=== PATIENT | female | born 1985 | race Caucasian/White ===

== ENCOUNTER 2017-11-13 20:36 | Observation (INO) | payer MEDICAID ==
[~2017-11-13] VITALS: Ht 160 cm; Wt 52.0 kg
[2017-11-13 20:43] VITALS: BP 130/77; PULSE 95; RESP 14; TEMP 98.4; O2SAT 100
--- NOTE | 2017-11-13 21:33 | PD ---
HPI Chief Complaint: Musculoskeletal Complaint Time Seen by Provider: 20:54 Travel History International Travel<30 days: No Contact w/Intl Traveler<30days: No Traveled to known affect area: No History of Present Illness HPI Is a 32-year-old woman who presents to the emergency department complaining of numbness and weakness in both her legs. She has a history of myotonic dystrophy. Multiple family members have the same. She is not on any medications right now for it. She is followed by in [place]. She normally has some generalized weakness and pain, especially her back and muscles , but can walk unassisted. This afternoon around [birth year]14[birth year]1929 she went to get up off the couch and just collapsed. She states she has had worsening weakness and as well as generalized numbness and burning pain in both her legs below about the mid thigh in a stocking sort of distribution. Denies any numbness tingling more proximal. She got some tingling in her hands after doing a hand squeeze but otherwise denies upper extremity symptoms prior to that. History Past Medical History Narrative Medical Myotonic dystrophy Anxiety Asthma Tetanus Vaccination: < 5 Years Influenza Vaccination: Yes LMP: Jul 2017 Social History Alcohol Use: Yes (rarely) Tobacco Use: No (quit 10 years ago) Allergies-Medications (Allergen,Severity, Reaction): Coded Allergies: Penicillins (Verified Allergy, Unknown, 11/13/17) ciprofloxacin (Verified Allergy, Unknown, 11/13/17) Reported Meds & Prescriptions Reported Meds & Active Scripts Active No Active Prescriptions or Reported Medications Review of Systems Except as stated in HPI: all other systems reviewed are Neg Physical Exam Narrative GENERAL: 32-year-old woman, well-appearing, decreased muscle bulk, nontoxic, no acute distress. SKIN: Focused skin assessment warm/dry. HEAD: Atraumatic. Normocephalic. EYES: Pupils equal and round. No scleral icterus. No injection or drainage. ENT: No nasal bleeding or discharge. Mucous membranes pink and moist. NECK: No meningismus. CARDIOVASCULAR: Regular rate and rhythm. No murmur appreciated. RESPIRATORY: No accessory muscle use. Clear to auscultation. Breath sounds equal bilaterally. GASTROINTESTINAL: Abdomen soft, non-tender, nondistended. Hepatic and splenic margins not palpable. MUSCULOSKELETAL: Decreased muscle bulk. She gets myotonia with psychology clinician. Some generalized weakness. Significant weakness in the lower extremities. Complains of near absent sensation in the lower extremities below about the knee. Reflexes are diminished in the upper and lower extremities, nearly absent except for the right patellar. No Babinski. NEUROLOGICAL: Awake and alert. No obvious cranial nerve deficits. Motor and strength exam as above. Normal speech. PSYCHIATRIC: Appropriate mood and affect; insight and judgment normal. Data Data Last Documented VS Vital Signs Date Time Temp Pulse Resp B/P (MAP) Pulse Ox O2 Delivery O2 Flow Rate FiO2 11/13/17 20:43 98.4 95 14 130/77 (94) 100 Orders Orders Complete Blood Count With Diff (11/13/17 21:17) Comprehensive Metabolic Panel (11/13/17 21:17) Iv Access Insert/Monitor (11/13/17 21:17) Beta Hcg (Quant/Titer) (11/13/17 21:17) Magnesium (Mg) (11/13/17 21:26) Potassium Chlor 20 Meq Premix (Kcl 20 Me (11/13/17 22:45) Sodium Chlor 0.9% 1000 Ml Inj (Ns 1000 M (11/13/17 22:45) Labs Laboratory Tests Test 11/13/17 21:26 White Blood Count 7.8 TH/MM3 Red Blood Count 5.02 MIL/MM3 Hemoglobin 14.9 GM/DL Hematocrit 43.9 % Mean Corpuscular Volume 87.3 FL Mean Corpuscular Hemoglobin 29.7 PG Mean Corpuscular Hemoglobin Concent 34.0 % Red Cell Distribution Width 15.0 % Platelet Count 225 TH/MM3 Mean Platelet Volume 9.0 FL Neutrophils (%) (Auto) 64.2 % Lymphocytes (%) (Auto) 27.6 % Monocytes (%) (Auto) 7.1 % Eosinophils (%) (Auto) 0.6 % Basophils (%) (Auto) 0.5 % Neutrophils # (Auto) 5.0 TH/MM3 Lymphocytes # (Auto) 2.2 TH/MM3 Monocytes # (Auto) 0.6 TH/MM3 Eosinophils # (Auto) 0.0 TH/MM3 Basophils # (Auto) 0.0 TH/MM3 CBC Comment DIFF FINAL Differential Comment Blood Urea Nitrogen 5 MG/DL Creatinine 0.53 MG/DL Random Glucose 116 MG/DL Total Protein 7.4 GM/DL Albumin 4.3 GM/DL Calcium Level 9.6 MG/DL Magnesium Level 2.2 MG/DL Alkaline Phosphatase 75 U/L Aspartate Amino Transf (AST/SGOT) 25 U/L Alanine Aminotransferase (ALT/SGPT) 26 U/L Total Bilirubin 1.0 MG/DL Sodium Level 145 MEQ/L Potassium Level 2.8 MEQ/L Chloride Level 109 MEQ/L Carbon Dioxide Level 26.8 MEQ/L Anion Gap 9 MEQ/L Estimat Glomerular Filtration Rate 134 ML/MIN Human Chorionic Gonadotropin, Quant LESS THAN 1 MIU/ML MDM Medical Decision Making Medical Screen Exam Complete: Yes Emergency Medical Condition: Yes Interpretation(s) LABS: CBC is unremarkable. CMP remarkable for potassium 2.8 Magnesium 2.2 HCG negative Differential Diagnosis Complication of myotonic dystrophy, spinal stroke, electrolyte abnormality, other Narrative Course Medical decision making Is a 32-year-old woman presents emergency department with history of myotonic dystrophy, now with severe weakness in both legs, with subjective numbness in both legs, abrupt onset, unclear etiology. Differential diagnosis complicated by an history of myotonic dystrophy. I will call and discuss with neurology as I am not as familiar with this condition. Will check labs, electrodes, consider MRI of the spine for spinal stroke. She is on estrogen which could raise her risk for this, otherwise I do not think to be particularly high risk. No history of vascular disease. FINAL: Symptoms likely related to marked hypokalemia. Patient has had chronic diarrhea which is likely etiology. She is not able to get MRI due to the gold weight in her eyelid to allow her to close her eye due to her muscular dystrophy. At this point will recommend admission to medicine. Will replete potassium. Magnesium is normal. Reassess. Diagnosis Primary Impression: Hypokalemia due to loss of potassium Additional Impressions: Weakness Myotonic muscular dystrophy Admitting Information Admitting Physician Requests: Admit Scripts No Active Prescriptions or Reported Meds Marky Love MD November 13, 2017 21:33
[2017-11-13 21:43] LABS: BASOPHIL % 0.5 % (0.0-2.0); EOSINOPHIL % 0.6 % (0.0-4.0); HEMATOCRIT 43.9 % (35.0-46.0); HEMOGLOBIN 14.9 GM/DL (11.6-15.3); LYMPH % 27.6 % (9.0-44.0); LYMPHOCYTE # 2.2 TH/MM3 (1.0-4.8); MEAN CELL VOLUME 87.3 FL (80.0-100.0); MEAN CORPUSCULAR HEMOGLOBIN 29.7 PG (27.0-34.0); MONO % 7.1 % (0.0-8.0); MONOCYTE # 0.6 TH/MM3 (0-0.9); NEUT % 64.2 % (16.0-70.0); PLATELET COUNT 225 TH/MM3 (150-450); RED BLOOD COUNT 5.02 MIL/MM3 (4.00-5.30); WHITE BLOOD COUNT 7.8 TH/MM3 (4.0-11.0)
[2017-11-13 21:55] LABS: ALBUMIN 4.3 GM/DL (3.4-5.0); ALT (GPT) 26 U/L (10-53); AST (GOT) 25 U/L (15-37); BICARBONATE 26.8 MEQ/L (21.0-32.0); BLOOD UREA NITROGEN 5 MG/DL (7-18); CALCIUM 9.6 MG/DL (8.5-10.1); CHLORIDE 109 MEQ/L (98-107); CREATININE 0.53 MG/DL (0.50-1.00); GLOMERULAR FILTRATION RATE 134 ML/MIN (>89); GLUCOSE,RANDOM 116 MG/DL (74-106); SODIUM (NA) 145 MEQ/L (136-145)
[2017-11-13 21:58] LABS: ALKALINE PHOSPHATASE 75 U/L (45-117); TOTAL PROTEIN 7.4 GM/DL (6.4-8.2)
[2017-11-13 22:29] LABS: MAGNESIUM 2.2 MG/DL (1.5-2.5)
[2017-11-13] MEDS ORDERED: SODIUM CHLOR 0.9% 1000 ML INJ 1,000 ML IV SCH (22:45)
[2017-11-13] MEDS: POTASSIUM CHLOR 20 MEQ PREMIX 100 ML IV SCH (22:55)
--- NOTE | 2017-11-13 22:55 | HHI.HP ---
[facility] Unknown Admission Diagnosis Diagnoses: (1) Muscular dystrophy Diagnosis: Principal (2) Weakness Diagnosis: Principal (3) Hypokalemia Diagnosis: Principal Travel History International Travel<30 Days: No Contact w/Intl Traveler <30 Da: No Traveled to Known Affected Are: No History of Present Illness This is a 32-year-old female with a PMH of Muscular Dystrophy who presented to ER with complaints of bilateral lower extremity numbness and weakness x1 day. States she follows w/ a Neurologist in [place] who is an MD specialist, although she lives locally. Has annual visits. Reports numbness is typical of her flares, however does not usually have weakness, currently unable to walk without assistance. Denies injury/trauma. Not on any medications. No fever, chills, back pain, incontinence. On arrival, BP 130/77, HR 95, O2 sat 100% RA, Afebrile. CBC unremarkable. K+ 2.8. S/p K+ replacement in ER. Review of Systems Except as stated in HPI: all other systems reviewed are Neg ROS: 14 point review of systems otherwise negative. Past Family Social History Past Medical History PMH: Muscular Dystrophy Past Surgical History PAST SURGICAL HISTORY: Tonsillectomy, Tympanostomy, Nasal Surgery, Left Eyelid Gold Weight Allergies: Coded Allergies: Penicillins (Verified Allergy, Unknown, 11/13/17) ciprofloxacin (Verified Allergy, Unknown, 11/13/17) Family History PAST FAMILY HISTORY: Reviewed. No h/o DM or CAD Social History PAST SOCIAL HISTORY: Negative for alcohol or tobacco. + Marijuana Physical Exam Vital Signs Vital Signs Date Time Temp Pulse Resp B/P (MAP) Pulse Ox O2 Delivery O2 Flow Rate FiO2 11/13/17 20:43 98.4 95 14 130/77 (94) 100 Physical Exam PE: GENERAL: Thin Latin female in no acute distress. HEENT: PERRLA, EOMI. No scleral icterus or conjunctival pallor. No lid lag or facial droop. CARDIOVASCULAR: Regular rate and rhythm. No obvious murmurs to auscultation. No chest tenderness to palpation. RESPIRATORY: No obvious rhonchi or wheezing. Clear to auscultation. Breath sounds equal bilaterally. GASTROINTESTINAL: Abdomen soft, non-tender, nondistended. BS normal. MUSCULOSKELETAL: Extremities without clubbing, cyanosis, or edema. No obvious deformities. NEUROLOGICAL: Awake, alert and oriented x4. Strength 4/5 bilateral lower extremities. Moving both upper and lower extremities spontaneously. Laboratory Laboratory Tests Test 11/13/17 21:26 White Blood Count 7.8 Red Blood Count 5.02 Hemoglobin 14.9 Hematocrit 43.9 Mean Corpuscular Volume 87.3 Mean Corpuscular Hemoglobin 29.7 Mean Corpuscular Hemoglobin Concent 34.0 Red Cell Distribution Width 15.0 Platelet Count 225 Mean Platelet Volume 9.0 Neutrophils (%) (Auto) 64.2 Lymphocytes (%) (Auto) 27.6 Monocytes (%) (Auto) 7.1 Eosinophils (%) (Auto) 0.6 Basophils (%) (Auto) 0.5 Neutrophils # (Auto) 5.0 Lymphocytes # (Auto) 2.2 Monocytes # (Auto) 0.6 Eosinophils # (Auto) 0.0 Basophils # (Auto) 0.0 CBC Comment DIFF FINAL Differential Comment Blood Urea Nitrogen 5 Creatinine 0.53 Random Glucose 116 Total Protein 7.4 Albumin 4.3 Calcium Level 9.6 Magnesium Level 2.2 Alkaline Phosphatase 75 Aspartate Amino Transf (AST/SGOT) 25 Alanine Aminotransferase (ALT/SGPT) 26 Total Bilirubin 1.0 Sodium Level 145 Potassium Level 2.8 Chloride Level 109 Carbon Dioxide Level 26.8 Anion Gap 9 Estimat Glomerular Filtration Rate 134 Human Chorionic Gonadotropin, Quant LESS THAN 1 Result Diagram: 11/13/17212511/13/172125 Caprini VTE Risk Assessment Caprini VTE Risk Assessment: No/Low Risk (score <= 1) Caprini Risk Assessment Model Point Value = 1 Point Value = 2 Point Value = 3 Point Value = 5 Age 41-60 Minor surgery BMI > 25 kg/m2 Swollen legs Varicose veins or History of unexplained or recurrent spontaneous Oral contraceptives or hormone replacement Sepsis (< 1 month) Serious lung disease, including pneumonia (< 1 month) Abnormal pulmonary function Acute myocardial infarction Congestive heart failure (< 1 month) History of inflammatory bowel disease Medical patient at bed rest Age 61-74 Arthroscopic surgery Major open surgery (> 45 min) Laparoscopic surgery (> 45 min) Malignancy Confined to bed (> 72 hours) Immobilizing plaster cast Central venous access Age >= 75 History of VTE Family history of VTE Factor V Leiden Prothrombin [id number] Lupus anticoagulant Anticardiolipin antibodies Elevated serum homocysteine Heparin-induced thrombocytopenia Other congenital or acquired thrombophilia Stroke (< 1 month) Elective arthroplasty Hip, pelvis, or leg fracture Acute spinal cord injury (< 1 month) Prophylaxis Regimen Total Risk Factor Score Risk Level Prophylaxis Regimen 0-1 Low Early ambulation 2 Moderate Order ONE of the following: *Sequential Compression Device (SCD) *Heparin 5000 units SQ BID 3-4 Higher Order ONE of the following medications: *Heparin 5000 units SQ TID *Enoxaparin/Lovenox 40 mg SQ daily (WT < 150 kg, CrCl > 30 mL/min) *Enoxaparin/Lovenox 30 mg SQ daily (WT < 150 kg, CrCl > 10-29 mL/min) *Enoxaparin/Lovenox 30 mg SQ BID (WT < 150 kg, CrCl > 30 mL/min) AND/OR *Sequential Compression Device (SCD) 5 or more Highest Order ONE of the following medications: *Heparin 5000 units SQ TID (Preferred with Epidurals) *Enoxaparin/Lovenox 40 mg SQ daily (WT < 150 kg, CrCl > 30 mL/min) *Enoxaparin/Lovenox 30 mg SQ daily (WT < 150 kg, CrCl > 10-29 mL/min) *Enoxaparin/Lovenox 30 mg SQ BID (WT < 150 kg, CrCl > 30 mL/min) AND *Sequential Compression Device (SCD) Assessment and Plan Problem List: (1) Muscular dystrophy ICD Code: G71.0 - Muscular dystrophy (2) Weakness ICD Code: R53.1 - Weakness Status: Acute (3) Hypokalemia ICD Code: E87.6 - Hypokalemia Assessment and Plan A/P: 1. Muscular Dystropy: follows w/ specialist in [place], last visit approx 1yr ago, has upcoming appt, instructed to follow up as planned. 2. Weakness: bilateral lower extremity weakness, unable to ambulate without assistance, unable to obtain MRI due to left eye gold weight implant. Consult Neurology for further recommendations. PT for eval/tx. 3. Hypokalemia: K+ 2.8, currently receiving replacement, will recheck labs in am, replace as needed. Reports chronic diarrhea, may need PO K+ supplementation. 4. DVT Prophylaxis: SCD/Teds. 5. Social work for d/c planning as needed. 6. Case discussed w/ ER physician at length, labs/records/imaging reviewed by me. Silvana Saunders MD November 13, 2017 22:55
[2017-11-13] MEDS ORDERED: BISACODYL 10 MG SUPP RECTAL PRN (23:00)
[2017-11-13] MEDS ORDERED: MAGNESIUM HYDROXIDE SUSP 30 ML CUP PO PRN (23:00)
[2017-11-13] MEDS ORDERED: ACETAMINOPHEN 325 MG TAB PO PRN (23:00)
[2017-11-13] MEDS ORDERED: ONDANSETRON HCL 4 MG/2 ML VIAL IVP PRN (23:00)
[2017-11-13] MEDS ORDERED: SENNOSIDES 8.6 MG TAB PO PRN (23:00)
[2017-11-13] MEDS ORDERED: SODIUM CHLORIDE 0.9% FLUSH 10 ML FLUSH IV FLUSH PRN (23:00)
[2017-11-13] MEDS ORDERED: ACETAMINOPHEN/HYDROcodone 325 MG/5 MG TAB PO PRN (23:00)
[2017-11-13] MEDS ORDERED: LACTULOSE SYRUP 20 GM/30 ML CUP PO PRN (23:00)
[2017-11-13] MEDS ORDERED: MORPHINE SULFATE 4 MG/ML INJ IV PRN (23:15)
[2017-11-14 00:47] VITALS: BP 112/67; PULSE 79; RESP 16; TEMP 98; O2SAT 100
[2017-11-14] MEDS: POTASSIUM CHLOR 20 MEQ PREMIX 100 ML IV SCH ×3 (01:09→12:28)
[2017-11-14] MEDS: SODIUM CHLOR 0.9% 1000 ML INJ 1,000 ML IV SCH ×3 (01:10→19:00)
[2017-11-14 03:57] VITALS: BP 94/56; PULSE 71; RESP 16; TEMP 98.2; O2SAT 98
[2017-11-14 07:54] LABS: AUTOMATED NEUTROPHIL # 2.4 TH/MM3 (1.8-7.7); BASOPHIL % 0.5 % (0.0-2.0); EOSINOPHIL # 0.1 TH/MM3 (0-0.4); EOSINOPHIL % 1.7 % (0.0-4.0); HEMATOCRIT 33.2 % (35.0-46.0); HEMOGLOBIN 11.2 GM/DL (11.6-15.3); LYMPH % 47.5 % (9.0-44.0); LYMPHOCYTE # 2.7 TH/MM3 (1.0-4.8); MEAN CELL VOLUME 87.8 FL (80.0-100.0); MEAN CORPUSCULAR HEMOGLOBIN 29.5 PG (27.0-34.0); MEAN CORPUSCULAR HGB CONC 33.6 % (32.0-36.0); MEAN PLATELET VOLUME 9.3 FL (7.0-11.0); MONO % 7.3 % (0.0-8.0); MONOCYTE # 0.4 TH/MM3 (0-0.9); PLATELET COUNT 165 TH/MM3 (150-450); RED BLOOD COUNT 3.78 MIL/MM3 (4.00-5.30); RED CELL DISTRIBUTION WIDTH 14.9 % (11.6-17.2); WHITE BLOOD COUNT 5.6 TH/MM3 (4.0-11.0)
[2017-11-14 07:55] VITALS: BP 97/56; PULSE 69; RESP 18; TEMP 97.7; O2SAT 99
[2017-11-14 08:27] LABS: ALBUMIN 2.9 GM/DL (3.4-5.0); ALT (GPT) 18 U/L (10-53); AST (GOT) 17 U/L (15-37); BICARBONATE 21.3 MEQ/L (21.0-32.0); BLOOD UREA NITROGEN 3 MG/DL (7-18); CALCIUM 7.6 MG/DL (8.5-10.1); CHLORIDE 116 MEQ/L (98-107); CREATININE 0.36 MG/DL (0.50-1.00); GLOMERULAR FILTRATION RATE 209 ML/MIN (>89); GLUCOSE,RANDOM 73 MG/DL (74-106); SODIUM (NA) 148 MEQ/L (136-145)
[2017-11-14 08:30] LABS: ALKALINE PHOSPHATASE 54 U/L (45-117); TOTAL BILIRUBIN ADULT 0.9 MG/DL (0.2-1.0); TOTAL PROTEIN 5.4 GM/DL (6.4-8.2)
[2017-11-14] MEDS: SODIUM CHLORIDE 0.9% FLUSH 10 ML FLUSH IV FLUSH SCH ×2 (09:00→20:48)
[2017-11-14] MEDS: DOCUSATE SODIUM 50 MG/SENNA 8.6 MG TAB PO SCH ×2 (09:00→20:48)
--- NOTE | 2017-11-14 10:29 | HHI.PR ---
Subjective Remarks Follow up for muscular dystrophy, weakness, hypokalemia. The patient reports feeling better today. She reports her legs cramping and burning as improved. She states she still feels slightly weak however almost back to her baseline. She has not yet attempted ambulation. She states she has chronic diarrhea secondary to the muscular dystrophy. She denies any other medical complaints including no fevers/chills, chest pain, palpitations, shortness of breath, abdominal pain, or urinary complaints. She wants to go home today. Objective Vitals Vital Signs Date Time Temp Pulse Resp B/P (MAP) Pulse Ox O2 Delivery O2 Flow Rate FiO2 11/14/17 07:55 97.7 69 18 97/56 (70) 99 11/14/17 03:57 98.2 71 16 94/56 (69) 98 11/14/17 01:01 11/14/17 00:47 98.0 79 16 112/67 (82) 100 11/13/17 20:43 98.4 95 14 130/77 (94) 100 I/O 11/13/17 11/13/17 11/13/17 11/14/17 11/14/17 11/14/17 07:00 15:00 23:00 07:00 15:00 23:00 Intake Total 100 ml Balance 100 ml Intake IV Total 100 ml # Voids 5 Result Diagram: 11/14/17 0633 11/14/17 0633 Objective Remarks GENERAL: Young thin female patient in [facility]. SKIN: Warm and dry. No rash. HEENT: Normocephalic. Atraumatic.Pupils equal and round. Mucous membranes pink and moist. CARDIOVASCULAR: Regular rate and rhythm. No murmur appreciated. RESPIRATORY: No accessory muscle use. Clear to auscultation. Breath sounds equal bilaterally. GASTROINTESTINAL: Abdomen soft, non-tender, nondistended. Normoactive bowel sounds x4. MUSCULOSKELETAL: No obvious deformities. Extremities without clubbing, cyanosis , or edema. NEUROLOGICAL: Awake and alert. No obvious cranial nerve deficits. Motor grossly within normal limits. Generalized weakness. Normal speech. PSYCHIATRIC: Appropriate mood and affect; insight and judgment normal. Medications and IVs Current Medications Medications (Trade) Dose Ordered Sig/Wei Route Start Time Stop Time Status Last Admin Sodium Chloride 1,000 ml @ 100 mls/hr Q10H IV 11/13/17 23:00 11/14/17 09:42 (NS Flush) 2 ml UNSCH PRN IV FLUSH 11/13/17 23:00 (NS Flush) 2 ml BID IV FLUSH 11/14/17 09:00 (Zofran Inj) 4 mg Q6H PRN IVP 11/13/17 23:00 (Tylenol) 650 mg Q6H PRN PO 11/13/17 23:00 (Henley 5-325 Mg) 1 tab Q4H PRN PO 11/13/17 23:00 (Morphine Inj) 2 mg Q3H PRN IV 11/13/17 23:15 (Alisha-Colace) 1 tab BID PO 11/14/17 09:00 (Milk Of Magnesia Liq) 30 ml Q12H PRN PO 11/13/17 23:00 (Senokot) 17.2 mg Q12H PRN PO 11/13/17 23:00 (Dulcolax Supp) 10 mg DAILY PRN RECTAL 11/13/17 23:00 (Lactulose Liq) 30 ml DAILY PRN PO 11/13/17 23:00 Potassium Chloride 100 ml @ 50 mls/hr Q2H IV 11/14/17 09:00 11/14/17 12:59 11/14/17 12:28 A/P Problem List: (1) Muscular dystrophy ICD Code: G71.0 - Muscular dystrophy (2) Weakness ICD Code: R53.1 - Weakness Status: Acute (3) Hypokalemia ICD Code: E87.6 - Hypokalemia Assessment and Plan 32-year-old female with a PMH of Muscular Dystrophy who presented to ER with complaints of bilateral lower extremity numbness and weakness x1 day. States she follows w/ a Neurologist in [place] who is an MD specialist, although she lives locally. Myotonic Dystrophy: follows w/ MD specialist in [place], last visit approx 1yr ago, has upcoming appt, instructed to follow up as planned. Weakness: bilateral lower extremity weakness, unable to ambulate without assistance, unable to obtain MRI due to left eye gold weight implant. Consult Neurology, appreciate recommendation. PT for eval/tx. Echo ordered and pending. Hypokalemia: K+ 2.8. S/p IV KCl bolus x2. Repeat K 3.2. Give additional IV KCl bolus x2. Repeat potassium this afternoon. Likely etiology- chronic diarrhea, patient denies any acute worsening. DVT Prophylaxis: SCD/Teds. Discharge Planning Possible discharge if echocardiogram unremarkable and repeat K wnl. At 2049hrs the patient was upset echocardiogram results were not available, she did not want to wait any longer, therefore she left AGAINST MEDICAL ADVICE. Discharge patient to AGAINST MEDICAL ADVICE Condition on discharge: Stable Gluten free Diet as tolerated Ad Kristine activity Rx written: no meds Follow-up with primary care physician and neurology Delilah Enriquez PA-C November 14, 2017 10:29
--- NOTE | 2017-11-14 11:18 | MB ---
cc: Giuseppe Bales MD DATE: 11/14/2017 HISTORY OF PRESENT ILLNESS: This is a 33-year-old woman with a history of myotonic dystrophy, who yesterday felt weaker in the legs than usual. She has some chronic knee pain and has difficulty walking at times, but she felt like her legs were weaker. She has a history of anxiety and asthma. She has a positive family history for myotonic dystrophy. She usually walks unassisted. She got off the couch and just collapsed. It turns out,her potassium was 2.8 and since she has had potassium replacement, her leg strength has improved. ALLERGIES: SHE IS ALLERGIC TO PENICILLIN AND CIPRO. SOCIAL HISTORY: Occasionally has a drink, is not a smoker. Mother lives locally. PAST MEDICAL HISTORY: She sees a neurologist over in [place] at this time. She has chronic diarrhea for many years. MEDICATIONS: She is on some p.r.n. medications. She is getting some potassium, otherwise no medications. PHYSICAL EXAMINATION: VITAL SIGNS: He is afebrile, heart rate 69, respirations 18, blood pressure 97/56. NEUROLOGIC: She is awake and alert. Speech is fluent. She is not aphasic. She has facies of myotonic dystrophy with weakness of her eye closure. He actually has a Gold implant in her eyelid. Face sensation was intact. Tongue was midline. Speech is strong. She has normal strength in bilateral triceps and deltoids. Finger extensors are a little bit weak, about a 5-/5. Iliopsoas, hamstring, quad, tibialis anterior are all normal. She is able to stand on her toes slightly. DTRs are 1+ and symmetric at the knees. Toes are downgoing bilaterally. There is no ankle clonus. Pinprick was intact throughout. She is able to stand and take a small step. The knees are hurting her a lot. LABORATORY DATA: CBC is normal. Potassium was 2.8, now 3.2. LFTs are normal. HCG negative. IMPRESSION: Myotonic dystrophy with some weakness from the low potassium, has improved greatly. RECOMMENDATIONS: I recommended she could try a gluten-free diet. We will just check her thyroid, keep her on tele, check an EKG with the history of myotonic dystrophy as it can cause arrhythmia or conduction problems and check some additional blood work on her, but overall she could be discharged neurologically when her potassium normalized. MD ANA PAULA Don/ENRIQUETA , 11:02 AM , 11:18 AM
[2017-11-14 11:26] VITALS: BP 100/60; PULSE 69; RESP 18; TEMP 98; O2SAT 99
[2017-11-14 12:32] LABS: BILIRUBIN, URINE NEG (NEG); BLOOD, URINE SMALL (NEG); GLUCOSE,URINE NEG (NEG); KETONE, URINE TRACE mg/dL (NEG); NITRITE,URINE NEG (NEG); PH, URINE 7.5 (5.0-8.5); SQUAMOUS EPITHELIAL CELL URINE 9 /hpf (0-5); URINE LEUKOCYTE ESTERASE MOD (NEG)
[2017-11-14 12:33] LABS: BACTERIA, URINE FEW /hpf
[2017-11-14 12:34] LABS: URINE COLOR STRAW (YELLW/STRAW)
[2017-11-14 14:22] LABS: RHEUMATOID FACTOR SCREEN NEGATIVE (NEGATIVE)
[2017-11-14 14:40] LABS: FREE T4 1.13 NG/DL (0.76-1.46)
[2017-11-14] MEDS ORDERED: WALKER/YOUTH/FO1 MIS (15:25)
--- NOTE | 2017-11-14 15:25 | HHI.DCPOC ---
Discharge Care Plan Diagnosis: (1) Myotonic muscular dystrophy (2) Hypokalemia due to loss of potassium (3) Weakness Goals to Promote Your Health * To prevent worsening of your condition and complications * To maintain your health at the optimal level Directions to Meet Your Goals Take your medications as prescribed Follow your dietary instruction Follow activity as directed Keep your appointments as scheduled Take your immunizations and boosters as scheduled If your symptoms worsen call your PCP, if no PCP go to Urgent Care Center or Emergency Room Smoking is Dangerous to Your Health. Avoid second hand smoke Call the 24-hour hour crisis hotline for domestic abuse at Delilah Enriquez PA-C November 14, 2017 3:25 pm
[2017-11-14 15:48] VITALS: PULSE 78
[2017-11-14 15:56] VITALS: BP 107/63; PULSE 74; RESP 18; TEMP 98.2; O2SAT 100
--- NOTE | 2017-11-17 01:16 | ECHRPT ---
Indication: CVA/TIA CONCLUSIONS The left ventricular systolic function is low normal with an estimated ejection fraction in the rang e of 50- 55%. Wall thickness is normal. Normal left ventricular size. Moderate thickening of the mitral valve leaflets. Mild bi-leaflet mitral valve leaflet prolapse. [id number] mitral valve regurgitation. There is mild tricuspid valve regurgitation. The estimated pulmonary arterial pressure is 13.3 mmHg. BP: / HR: 72 Rhythm: Sinus MEASUREMENTS (Male / Female) Normal Values Technical Quality:Fair 2D ECHO LV Diastolic Diameter PLAX 4.0 cm 4.2 - 5.9 / 3.9 - 5.3 cm LV Systolic Diameter PLAX 3.1 cm IVS Diastolic Thickness 0.7 cm 0.6 - 1.0 / 0.6 - 0.9 cm LVPW Diastolic Thickness 0.7 cm 0.6 - 1.0 / 0.6 - 0.9 cm LV Relative Wall Thickness 0.4 RV Internal Dim ED PLAX 2.8 cm LVOT Diameter 1.9 cm LA Systolic Diameter LX 2.7 cm 3.0 - 4.0 / 2.7 - 3.8 cm M-MODE Aortic Root Diameter MM 2.5 cm LA Systolic Diameter MM 2.9 cm LA Ao Ratio MM 1.2 AV Cusp Separation MM 2.3 cm DOPPLER AV Peak Velocity 97.0 cm/s AV Peak Gradient 3.8 mmHg LVOT Peak Velocity 94.3 cm/s LVOT Peak Gradient 3.6 mmHg AV Area Cont Eq pk 2.8 cm MV Area PHT 4.4 cm Mitral E Point Velocity 103.0 cm/s Mitral A Point Velocity 56.8 cm/s Mitral E to A Ratio 1.8 LV E' Lateral Velocity 17.8 cm/s Mitral E to LV E' Lateral Ratio 5.8 LV E' Septal Velocity 14.1 cm/s Mitral E to LV E' Septal Ratio 7.3 TR Peak Velocity 143.9 cm/s TR Peak Gradient 8.3 mmHg Right Atrial Pressure 5.0 mmHg Pulmonary Artery Systolic Pressu 13.3 mmHg Right Ventricular Systolic Press 13.3 mmHg FINDINGS LEFT VENTRICLE The left ventricular systolic function is low normal with an estimated ejection fraction in the rang e of 50- 55%. Wall thickness is normal. Normal left ventricular size. RIGHT VENTRICLE Normal right ventricular size and systolic function. LEFT ATRIUM The left atrial size is normal. RIGHT ATRIUM The right atrial size is normal. ATRIAL SEPTUM Normal atrial septal thickness without atrial level shunting by limited color doppler interrogation. AORTA The aortic root and proximal ascending aorta are normal in size on limited imaging. MITRAL VALVE Moderate thickening of the mitral valve leaflets. Mild bi-leaflet mitral valve leaflet prolapse. [id number] mitral valve regurgitation. AORTIC VALVE Trileaflet aortic valve. No aortic valve stenosis or regurgitation. TRICUSPID VALVE Structurally normal tricuspid valve. There is mild tricuspid valve regurgitation. The estimated pulmonary arterial pressure is 13.3 mmHg. PULMONARY VALVE No pulmonary valve regurgitation or stenosis. VESSELS The inferior vena cava is normal in size. PERICARDIUM No pericardial effusion. Lio Gray MD (Electronically Signed) Final Date:14 Nov 2017 19:31
[2017-11-18 10:32] LABS: METHYLMALONIC ACID 0.11 nmol/mL (<=0.40)
== END 2017-11-14 20:44 | disposition left against medical advice (07) ==
LOC: NEPE 20:36 → NEDA 22:56 → NEPHCDU 11-14 00:41
PROVIDERS: ADMIT Hospitalist; ATTEND Hospitalist
DX: R53.1 Weakness (principal); E87.6 Hypokalemia; G71.11 Myotonic muscular dystrophy; G71.0 Muscular dystrophy; G89.29 Other chronic pain; J45.909 Unspecified asthma, uncomplicated; K52.9 Noninfective gastroenteritis and colitis, unspecified
CPT/HCPCS: 80053; 81001; 82140; 82550; 82552; 82607; 83735; 83921; 84132; 84207; 84425; 84439; 84443; 84450; 84460; 84702; 85025; 85652; 86038; 86430; 86592; 93306; 96365; 96366; 97161; 99285; G0378; G8987; G8988; J3480; J7030